=== PATIENT | male | born 1965 | race African-American/Black ===

== ENCOUNTER 2017-04-26 20:06 | Emergency (ER) | payer MEDICARE, OTHER ==
[~2017-04-26 20:06] MED LIST: AMLODIPINE BESY10 MG PO; BACLOFEN 10MG T10 MG PO; CERTAGEN1 EACH PO; IBUPROFEN800 MG PO; LAXATIVE OF CHOICE; OMEPRAZOLE 20MG20 MG PO; PERCOCET 5/3251 TAB PO; TRAMADOL HCL50 MG PO; VOLTAREN **OUT75 MG PO
== END 2017-04-26 22:49 | disposition home or self-care (01) ==
LOC: FER 20:06
DX: S42.022A Displaced fracture of shaft of left clavicle, initial encounter for closed fracture (principal); M54.2 Cervicalgia; W30.9XXA Contact with unspecified agricultural machinery, initial encounter
CPT/HCPCS: 71020; 72125; 73000; 73030; J1885